=== PATIENT | female | born 1985 | race Caucasian/White ===

== ENCOUNTER 2016-08-26 15:06 | Emergency (ER) | payer OTHER ==
--- NOTE | ~2016-08-26 | CR72 ---
[facility] A Service of [facility] RADIOLOGY TEXT RESULTS PATIENT: CECY FLORES LOCATION: [facility] : 83 UNIT #: [id number] AGE: [address]: Miles Amezcua MD SEX: F ORDER DR: [id number] [facility] [address] [place], [place] [address] [id number] E MR#: [id number] Acc #: [id number] NAME: CECY FLORES : 1985 SEX: F STUDY DATE/TIME: 08/26/2016 15:56 UNIT: [facility] ROOM: STUDY DESCRIPTION: CR Chest Single View Portable Attending Physician: Miles Amezcua M.D. Ordering Physician: Miles Amezcua M.D. MEDICAL IMAGING REPORT This report is preliminary unless electronic signature is present EXAM Portable chest x-ray 08/26/2016 HISTORY Short of air. Today. History of asthma. AP radiograph chest pain. COMPARISON STUDIES No comparisons. FINDINGS No acute pulmonary disease, pleural effusion or pneumothorax. No suspicious nodule. Heart normal in size. The bony structures are unremarkable. Dictated by... Saqib Flowers M.D. THIS IS AN ELECTRONICALLY VERIFIED REPORT Saqib Flowers M.D. at 09/01/2016 10:15 AM Deisi TD: 08/26/2016 18:03 JOB #: [id number] MEDICAL IMAGING REPORT Page 1 of 1 COPY
== END 2016-08-26 17:25 | disposition home or self-care (01) ==
LOC: CED 15:06
DX: J45.901 Unspecified asthma with (acute) exacerbation (principal); Z90.49 Acquired absence of other specified parts of digestive tract; F17.200 Nicotine dependence, unspecified, uncomplicated
CPT/HCPCS: 71010; 94640; 99284